=== PATIENT | female | born 1965 | race Caucasian/White ===

== ENCOUNTER 2016-07-11 11:35 | Emergency (ER) | payer OTHER | END 2016-07-11 12:33 | disposition home or self-care (01) | LOC: FER 11:35 | DX: M54.30 Sciatica, unspecified side (principal); F17.210 Nicotine dependence, cigarettes, uncomplicated; Z88.6 Allergy status to analgesic agent | CPT/HCPCS: J2930 ==

== ENCOUNTER 2016-07-16 13:52 | Emergency (ER) | payer OTHER | END 2016-07-16 15:51 | disposition home or self-care (01) | LOC: FER 13:52 | DX: M54.5 Low back pain (principal); G89.29 Other chronic pain; F17.210 Nicotine dependence, cigarettes, uncomplicated; Z88.6 Allergy status to analgesic agent; X50.1XXA Overexertion from prolonged static or awkward postures, initial encounter; Y92.009 Unspecified place in unspecified non-institutional (private) residence as the place of occurrence of the external cause | CPT/HCPCS: J1100; J1885 ==

== ENCOUNTER 2016-08-28 06:14 | Inpatient (IN) | payer OTHER ==
[2016-08-28 07:01] LABS: BASOPHIL 0.2 % (0-2); EOSINOPHIL 0.2 % (0-5); HCT 39.5 % (37.0-47.0); HGB 13.5 g/dl (12.5-16.0); LYMPHOCYTE 6.1 % (15-48); MCHC 34.2 g/dL (32.0-36.0); MCV 90.6 fL (78.0-100.0); MONOCYTE 4.2 % (0-12); MPV 10.8 fL (6.0-9.5); NEUTROPHIL 89.3 % (41-80); PLT 252 K/uL (150-400); RBC 4.36 M/uL (4.20-5.40); RDW 13.8 % (11.5-14.0); WBC 15.5 K/uL (4.0-10.5)
[2016-08-28 07:13] LABS: PRO-BNP 46 pg/mL (0-125); TROPONIN T < 0.010 ng/mL
[2016-08-28 07:15] LABS: ALBUMIN 4.4 g/dL (3.5-5.0); BILIRUBIN - TOTAL 0.3 mg/dL (0.1-1.0); CREATININE 0.6 mg/dL (0.5-1.0); GLOBULIN (CALCULATION) 3.3 g/dL (2.2-4.2); POTASSIUM 4.4 mmol/L (3.5-5.1); TOTAL PROTEIN 7.7 g/dL (6.4-8.3)
--- NOTE | 2016-08-29 05:34 | NUR ---
PT UP GOING TO BATHROOM ON OWN SEVERAL TIMES
[2016-08-29 06:23] LABS: HCT 34.9 % (37.0-47.0); HGB 11.6 g/dl (12.5-16.0); MCH 30.1 pg (25.0-31.0); MCHC 33.2 g/dL (32.0-36.0); MCV 90.4 fL (78.0-100.0); MPV 10.5 fL (6.0-9.5); RBC 3.86 M/uL (4.20-5.40); RDW 13.5 % (11.5-14.0); WBC 16.2 K/uL (4.0-10.5)
[2016-08-29 06:47] LABS: CREATININE 0.5 mg/dL (0.5-1.0); POTASSIUM 3.8 mmol/L (3.5-5.1)
[2016-08-30 06:14] LABS: HCT 34.6 % (37.0-47.0); HGB 11.5 g/dl (12.5-16.0); MCH 30.7 pg (25.0-31.0); MCHC 33.2 g/dL (32.0-36.0); MCV 92.3 fL (78.0-100.0); RBC 3.75 M/uL (4.20-5.40); RDW 13.8 % (11.5-14.0); WBC 17.4 K/uL (4.0-10.5)
[2016-08-30 06:28] LABS: CREATININE 0.5 mg/dL (0.5-1.0); POTASSIUM 4.6 mmol/L (3.5-5.1)
== END 2016-08-31 13:30 | disposition home or self-care (01) | DRG 189 ==
LOC: FER 06:14 → FMS 07:51
PROVIDERS: Emergency Medicine Emergency Medical Services; ADMIT Internal Medicine Cardiovascular Disease
DX: J96.00 Acute respiratory failure, unspecified whether with hypoxia or hypercapnia (principal); J18.9 Pneumonia, unspecified organism; J45.909 Unspecified asthma, uncomplicated; F32.9 Major depressive disorder, single episode, unspecified; F41.9 Anxiety disorder, unspecified; E03.9 Hypothyroidism, unspecified; G40.909 Epilepsy, unspecified, not intractable, without status epilepticus
CPT/HCPCS: 36415; 36600; 71020; 80048; 80053; 82803; 83880; 84443; 84484; 85025; 87040; 87070; 87205; 90732; 93005; 94010; 94640; 94667; 94668; J0456; J2930